=== PATIENT | male | born 1950 | race African-American/Black ===

== ENCOUNTER 2018-05-23 14:10 | Inpatient (IN) | payer MEDICARE, MEDICAID ==
[~2018-05-23] VITALS: Ht 167.6 cm; Wt 73.0 kg
[2018-05-23] MEDS ORDERED: GELATIN SPONGE,ABSORBABLE 12-7MM SPONGE ONE ×3 (14:25→18:08)
[2018-05-23] MEDS ORDERED: BUPIVACAINE HCL/PF 0.25% (2.5MG/ML) 10ML ONE ×2 (14:26→14:27)
[2018-05-23] MEDS ORDERED: LIDOCAINE HCL 1% 20ML VIAL (Pyxis) INJ ONE (14:26)
[2018-05-23] MEDS ORDERED: BACITRACIN 15GM TUBE TOP ONE (14:26)
[2018-05-23] MEDS ORDERED: THROMBIN (BOVINE) 5000 UNITS/VIAL TOP ONE ×4 (14:27→18:31)
[2018-05-23] MEDS ORDERED: HEPARIN SODIUM 1,000 UNIT/1ML VIAL IV ONE (14:28)
[2018-05-23] MEDS ORDERED: BACITRACIN 50,000 UNITS/VIAL ONE (14:28)
[2018-05-23] MEDS ORDERED: ONDANSETRON HCL 4MG/2ML INJ ONE (14:52)
[2018-05-23] MEDS ORDERED: PHENYLEPHRINE HCL 10 MG/ML 1ML (IV VIAL) IV ONE (14:52)
[2018-05-23] MEDS ORDERED: EPHEDRINE SULFATE 50MG/ML VIAL ONE (14:52)
[2018-05-23] MEDS ORDERED: CEFAZOLIN SODIUM 1000MG/VIAL ONE (15:02)
[2018-05-23 15:15] LABS: HEMATOCRIT. 32.3 % (42.0-52.0); HEMOGLOBIN. 10.5 g/dL (14.0-18.0); MEAN CORPUSCULAR HEMOGLOBIN 33.3 pg (28.0-32.0); MEAN PLATELET VOLUME 8.5 fl (7.4-10.4); PLATELET 88 x1000/uL (130-400); RED BLOOD CELL COUNT 3.17 mill/uL (4.7-6.1); RED CELL DISTRIBUTION WIDTH 22.1 % (11.6-14.6)
[2018-05-23] MEDS ORDERED: PAPAVERINE HCL 30 MG/ML 2ML IV ONE (15:20)
[2018-05-23] MEDS ORDERED: HEPARIN 5000 UNITS/ML VIAL ONE (15:20)
[2018-05-23 15:22] LABS: CHLORIDE 99 mEq/L (98-107); INR 1.2; PROTHROMBIN TIME 11.6 sec (9.1-11.1)
[2018-05-23] MEDS ORDERED: BUPIVACAINE HCL/PF 0.5% (5MG/ML) 10ML ONE (15:32)
[2018-05-23] MEDS ORDERED: SODIUM CHLORIDE 0.9% 10ML VIAL ONE (15:50)
[2018-05-23] MEDS ORDERED: PROPOFOL 200MG/20ML VIAL IV ONE ×2 (16:01→16:38)
[2018-05-23 16:03] LABS: PLATELET ESTIMATE DECREASED
[2018-05-23] MEDS ORDERED: HEPARIN 1000 UNITS/ML 10ML ONE (16:38)
[2018-05-23] MEDS ORDERED: MIDAZOLAM HCL 2 MG/2 ML VIAL ONE (16:42)
[2018-05-23] MEDS ORDERED: FENTANYL CITRATE/PF 50MCG/ML 2ML VIAL ONE ×2 (17:22→18:11)
[2018-05-23] MEDS ORDERED: SODIUM CHLORIDE 0.9% 1,000 ML IV ONE (19:13)
[2018-05-23] MEDS ORDERED: HYDROCODONE/ACETAMINOPHEN 5/325MG TABLET PO PRN (19:15)
[2018-05-23] MEDS ORDERED: MEPERIDINE HCL/PF 25MG/ML CPJ IV PRN (19:15)
[2018-05-23] MEDS ORDERED: HYDROMORPHONE HCL/PF 2MG/ML CPJ IV PRN ×2 (19:15)
[2018-05-23] MEDS ORDERED: MORPHINE SULFATE 4 MG/ML CPJ (NOT FOR IM USE) IV PRN (19:15)
[2018-05-23] MEDS ORDERED: ONDANSETRON HCL 4MG/2ML INJ IV PRN ×2 (19:15→19:30)
[2018-05-23] MEDS ORDERED: IPRATROPIUM/ALBUTEROL 0.5-3(2.5)MG/3ML NEB INH PRN (19:30)
[2018-05-23] MEDS ORDERED: DOCUSATE SODIUM 100MG CAPSULE PO PRN (19:30)
[2018-05-23] MEDS ORDERED: ACETAMINOPHEN 325MG TABLET PO PRN (19:30)
[2018-05-23 20:00] VITALS: BP 154/100
[2018-05-23 20:40] VITALS: BP 154/100
[2018-05-24] VITALS (14 sets, daily range): BP systolic 113–152; BP diastolic 66–96
[2018-05-24] MEDS: PANTOPRAZOLE 40MG DR TABLET PO SCH ×2 (06:16→12:15)
[2018-05-24 08:06] LABS: BASOPHILS % 0.7 % (0.0-2.0); EOSINOPHILS % 6.7 % (0.0-5.0); HEMATOCRIT. 24.8 % (42.0-52.0); HEMOGLOBIN. 8.6 g/dL (14.0-18.0); LYMPHOCYTES % 20.8 % (20.0-50.0); MEAN CORPUSCULAR HEMOGLOBIN 34.5 pg (28.0-32.0); MEAN CORPUSCULAR VOLUME 99.3 fL (80.0-94.0); MEAN PLATELET VOLUME 8.6 fl (7.4-10.4); MONOCYTES % 6.2 % (2.0-8.0); NEUTROPHILS % 65.6 % (40.0-76.0); PLATELET 96 x1000/uL (130-400); RED BLOOD CELL COUNT 2.49 mill/uL (4.7-6.1); RED CELL DISTRIBUTION WIDTH 22.1 % (11.6-14.6)
[2018-05-24] MEDS: AMLODIPINE 10MG TABLET PO SCH (09:00)
[2018-05-24] MEDS ORDERED: LIDOCAINE HCL 1% 20ML VIAL (Pyxis) INJ ONE (10:34)
[2018-05-24] MEDS ORDERED: SODIUM BICARBONATE 4% (2.4MEQ) 5ML VIAL IV ONE (10:34)
[2018-05-24] MEDS ORDERED: CEFAZOLIN 1000MG PREMIX 50 ML IV ONE ×2 (10:40→10:47)
[2018-05-24] MEDS ORDERED: LIDOCAINE HCL/EPINEPHRINE 1%-EPI 1:100,000 20 ML VIAL ONE (10:43)
[2018-05-24] MEDS ORDERED: FENTANYL CITRATE/PF 50MCG/ML 2ML VIAL IV ONE (10:45)
[2018-05-24] MEDS ORDERED: FENTANYL CITRATE/PF 50MCG/ML 2ML VIAL ONE (10:54)
[2018-05-24 16:08] LABS: HEMATOCRIT 28.5 % (42.0-52.0); HEMOGLOBIN 9.4 g/dL (14.0-18.0)
[2018-05-24 18:30] LABS: HEPATITIS A AB IGM NEGATIVE (NEGATIVE)
[2018-05-24 19:14] LABS: HEPATITIS B SURFACE ANTIGEN NEGATIVE
[2018-05-24] MEDS ORDERED: EPOETIN ALFA 10000UNITS/ML VIAL SUBCUT SCH (21:00)
[2018-05-25] VITALS: BP 148/71
[2018-05-25 04:00] VITALS: BP 141/60
[2018-05-25 06:55] LABS: BASOPHILS % 0.3 % (0.0-2.0); EOSINOPHILS % 6.9 % (0.0-5.0); HEMATOCRIT. 26.2 % (42.0-52.0); HEMOGLOBIN. 8.6 g/dL (14.0-18.0); LYMPHOCYTES % 23.3 % (20.0-50.0); MEAN PLATELET VOLUME 8.1 fl (7.4-10.4); MONOCYTES % 7.2 % (2.0-8.0); NEUTROPHILS % 62.3 % (40.0-76.0); PLATELET 107 x1000/uL (130-400); RED BLOOD CELL COUNT 2.62 mill/uL (4.7-6.1)
[2018-05-25 08:00] VITALS: BP 160/100
[2018-05-25] MEDS: AMLODIPINE 10MG TABLET PO SCH (09:26)
[2018-05-25 12:00] VITALS: BP 140/90
[2018-05-25] MEDS ORDERED: PANT40TA4 PO (12:04)
[2018-05-25] MEDS ORDERED: EPOE10005 SUBCUT (12:04)
[2018-05-25] MEDS ORDERED: AMLO10TA80 PO (12:04)
[2018-05-25 14:25] VITALS: BP_SYST 140; BP_SYST 151; BP_DIAS 100; BP_DIAS 90
[2018-05-25 16:00] VITALS: BP 151/100
== END 2018-05-25 17:44 | disposition home or self-care (01) | DRG 252 ==
LOC: ER 14:10 → EDBEDREQ 15:20 → ENRESERV 18:36 → 8WST 21:31
PROVIDERS: ADMIT Internal Medicine; ATTEND Internal Medicine
PROC: 0JH63XZ Insertion of Tunneled Vascular Access Device into Chest Subcutaneous Tissue and Fascia, Percutaneous Approach (ICD-10-PCS; 2018-05-24)
PROC: 02HV33Z Insertion of Infusion Device into Superior Vena Cava, Percutaneous Approach (ICD-10-PCS; 2018-05-24)
PROC: 5A1D70Z Performance of Urinary Filtration, Intermittent, Less than 6 Hours Per Day (ICD-10-PCS; 2018-05-24)
PROC: B5181ZA Fluoroscopy of Superior Vena Cava using Low Osmolar Contrast, Guidance (ICD-10-PCS; 2018-05-24)
PROC: B548ZZA Ultrasonography of Superior Vena Cava, Guidance (ICD-10-PCS; 2018-05-24)
PROC: 5A1D70Z Performance of Urinary Filtration, Intermittent, Less than 6 Hours Per Day (ICD-10-PCS; principal; 2018-05-25)
PROC: 03WY0JZ Revision of Synthetic Substitute in Upper Artery, Open Approach (ICD-10-PCS; 2018-05-25)
DX: T82.898A Other specified complication of vascular prosthetic devices, implants and grafts, initial encounter (principal); N18.6 End stage renal disease; E43 Unspecified severe protein-calorie malnutrition; I12.0 Hypertensive chronic kidney disease with stage 5 chronic kidney disease or end stage renal disease; D53.9 Nutritional anemia, unspecified; Z99.2 Dependence on renal dialysis; Z68.26 Body mass index [BMI] 26.0-26.9, adult; Y83.8 Other surgical procedures as the cause of abnormal reaction of the patient, or of later complication, without mention of misadventure at the time of the procedure; Y92.89 Other specified places as the place of occurrence of the external cause; S40.022A Contusion of left upper arm, initial encounter; X58.XXXA Exposure to other specified factors, initial encounter; Y93.89 Activity, other specified; Y99.8 Other external cause status
CPT/HCPCS: 36415; 36558; 71045; 76937; 77001; 80048; 84145; 84443; 85014; 85018; 86705; 86709; 86803; 86850; 86900; 87340; 93005; 93306; 99152; 99153; 99285; C1750; C1768; J0690; J0885; J1642; J1644; J2250; J2370; J2405; J2440; J2704; J3010; J3490; J7040; J7050; G0500